=== PATIENT | male | born 1965 | race Caucasian/White ===

== ENCOUNTER 2016-05-16 03:46 | Emergency (ER) | payer BC ==
[~2016-05-16] VITALS: Ht 170.2 cm; Wt 91.0 kg
[~2016-05-16 03:46] MED LIST: ANT25 PO; ASPIRIN; ATV5 PO; NSP500 PO
[2016-05-16 03:51] VITALS: TEMP 36.3; Ht 170.2 cm; Wt 91.0 kg
[2016-05-16] MEDS ORDERED: ONDANSETRON INJ 2 MG/ML 2 ML VIAL ONE (03:59)
[2016-05-16] MEDS ORDERED: ONDANSETRON INJ 2 MG/ML 2 ML VIAL IV STA (04:05)
[2016-05-16] MEDS ORDERED: MoRPHine SULFATE 4 MG/ML 1 ML CARP\\VIAL IV STA (04:05)
[2016-05-16] MEDS ORDERED: SODIUM CHLORIDE 0.9% 1000ML 1,000 ML IV STA (04:05)
[2016-05-16 04:12] LABS: BASO % 0.5 %; BASO ABS # 0.04 K/uL (0-0.2); COMPLETE YES; EOS % 4.8 %; HEMATOCRIT 45.7 % (42-52); IG% 0.1 %; LYMPH % 41.7 %; LYMPH ABS # 3.32 K/uL (1.2-3.4); MEAN CELL VOLUME 82.2 fL (80-100); MEAN CORPUSCULAR HEMOGLOBIN 28.2 pg (25-34); MEAN CORPUSCULAR HGB CONC 34.4 g/dl (32-36); MEAN PLATELET VOLUME 10.3 fL (7.4-10.4); MONO % 10.4 %; NEUT % 42.5 %; PLATELET COUNT 192 K/uL (130-400); RED BLOOD COUNT 5.56 M/uL (4.7-6.1); WHITE BLOOD COUNT 7.96 K/uL (4.8-10.8)
[2016-05-16 04:23] LABS: BUN/CREATININE RATIO 14.7 (10-20); CALCIUM 8.7 mg/dl (8.5-10.1); CREATININE 1.3 mg/dl (0.60-1.40); POTASSIUM 4.2 mmol/L (3.5-5.1)
[2016-05-16] MEDS ORDERED: HYDROmorphone INJ 1 MG/ML SYR IV STA (04:36)
[2016-05-16] MEDS ORDERED: ASPI81TA28 PO (05:24)
[2016-05-16] MEDS ORDERED: OXYC1TAB3 PO (05:43)
[2016-05-16] MEDS ORDERED: ONDANSETRON HOME PACK 4MG OD TAB PO ONE (05:45)
[2016-05-16] MEDS ORDERED: OXYCODONE IR HOME PACK PO ONE (05:45)
--- NOTE | 2016-05-16 06:56 | DIAGNOSTIC IMAGING REPORT ---
ABDOMEN AND PELVIS CT WITHOUT CONTRAST CT DOSE: 1017.86 mGy.cm HISTORY: Left flank pain left side pain TECHNIQUE: Multiaxial CT images of the abdomen and pelvis were performed without the use of intravenous and oral contrast according to the standard department stone protocol. COMPARISON STUDY: None. FINDINGS: Mild bibasilar atelectasis. Liver spleen and pancreas are unremarkable. Gallbladder is negative for distention. Right kidney is negative for hydronephrosis. Left kidney shows mild hydroureteronephrosis. This extends to a left ureteral vesicle calculus measuring 4 mm. Bladder is midline and relatively collapsed. There again is mild left hydroureteronephrosis. Bowel pattern is nonobstructive. The appendix is normal. IMPRESSION: 1. Obstructing calculus left ureterovesical junction. 2. Moderate left hydroureteronephrosis. 3. Additional nonobstructing renal calcification. 4. Mild bibasilar atelectasis. Electronically signed by: Mohan Erazo M.D. 05/16/2016 6:54 AM Dictated Date/Time: 05/16/2016 6:53 AM
[2016-05-16 07:19] VITALS: BP 124/85; PULSE 61; O2SAT 95
--- NOTE | 2016-05-16 08:00 | EMERGENCY ROOM VISIT NOTE ---
ED Visit Note The patient was signed out to me at shift change by Alise Mitchell PA-C. Please see her dictation for additional details. Briefly, the patient presents with a kidney stone. At the time of sign out, we are awaiting urinalysis. The patient was able to urinate well in the emergency department. At this time, he passed a kidney stone. The stone was sent for analysis. The urinalysis reveals hematuria. The patient was pain-free. He was discharged home.
[2016-05-16 08:06] LABS: MANUAL MICROSCOPIC REQUIRED? YES; URINE APPEARANCE CLEAR (CLEAR); URINE BILIRUBIN NEG (NEG); URINE COLOR YELLOW; URINE NITRITE NEG (NEG); URINE PH 5.5 (4.5-7.5); URINE SPECIFIC GRAVITY 1.025 (1.000-1.030); UROBILINOGEN NEG (NEG)
[2016-05-16 08:09] LABS: REVIEW REQ? NO
[2016-05-16 08:13] LABS: URINE BACTERIA NEG (NEG); ZZUR CULT IF INDIC CLEAN CATCH NO
--- NOTE | 2016-05-17 06:04 | EMERGENCY ROOM VISIT NOTE ---
History First contact with patient: 03:53 Chief Complaint: ABDOMINAL PAIN Stated Complaint: LEFT SIDE ABDOMINAL PAIN Nursing Triage Summary: c/o sudden LLQ pain x 1 hour with nausea that woke him from sleep. hx kidney stones. History of Present Illness The patient is a 50 year old male who presents to the Emergency Room with complaints of left lower quadrant pain and side pain for the past hour that woke him up out of sleep. He's had kidney stones before. Patient describes the pain as severe, 9 out of 10. Nothing makes it better or worse. Patient complains of nausea and vomiting. Patient denies chest pain, dyspnea, fever, chills, cough, congestion, urinary symptoms, diarrhea. No colonoscopy. No history diverticulitis. Review of Systems See HPI for pertinent positives & negatives. A total of 10 systems reviewed and were otherwise negative. Past Medical/Surgical History Kidney stones Social History Smoking Status: Never Smoker Alcohol Use: occasionally Drug Use: none Marital Status: Housing Status: lives with family Occupation Status: employed Current/Historical Medications Scheduled Aspirin (Aspirin Ec), 81 MG PO DAILY Niacin Ext Rel (Niaspan Ext Rel), 1,000 MG PO DAILY Scheduled PRN Oxycodone Immediate Rel Tab (Roxicodone Ir), 1-2 TAB PO Q4H PRN for Severe Pain Allergies Coded Allergies: No Known Allergies (Verified Allergy, Unknown, 01/02/06) Physical Exam Vital Signs Date Time Temp Pulse Resp B/P Pulse Ox O2 Delivery O2 Flow Rate FiO2 05/16/16 07:19 61 16 124/85 95 05/16/16 05:25 69 20 120/70 93 Room Air 05/16/16 03:51 36.3 67 20 145/102 94 Room Air Physical Exam VITALS: Vitals are noted on the nurse's note and reviewed by myself. Vital signs stable. GENERAL: Pleasant male writhing in pain, nondiaphoretic, well-developed well- nourished. SKIN: The skin was without rashes, erythema, edema, or bruising. There is no tenting of the skin. Capillary reflex less than 2 seconds. HEAD: Normocephalic atraumatic. EARS: External auditory canals clear, tympanic membranes pearly [place] without erythema or effusion bilaterally. EYES: Pupils equal round and reactive to light and accommodation. Conjunctivae without injection, sclerae without icterus. Extraocular movements intact. NOSE: Patent, turbinates without inflammation or discharge. MOUTH: Mucous membranes moist. Pharynx without erythema or exudate. Uvula midline. Airway patent. Tongue does not deviate. NECK: Supple without nuchal rigidity. No lymphadenopathy. No thyromegaly. Cervical spine is nontender. No JVD. HEART: Regular rate and rhythm without murmurs gallops or rubs. LUNGS: Clear to auscultation bilaterally without wheezes, rales or rhonchi. No dullness to percussion. No retractions or accessory muscle use. ABDOMEN: Positive bowel sounds x 4. Normal tympanic percussion. Soft, nontender, without masses or organomegaly. Gutierrez sign negative. No guarding or rebound tenderness. No CVA tenderness MUSCULOSKELETAL: No muscle atrophy, erythema, or edema noted. NEURO: Patient was alert and oriented to person place and time. Normal sensation to light and sharp touch. No focal neurological deficits. Medical Decision & Procedures Laboratory Results 05/16/16 04:00 Red Blood Count 5.56, Mean Corpuscular Volume 82.2, Mean Corpuscular Hemoglobin 28.2, Mean Corpuscular Hemoglobin Concent 34.4, Mean Platelet Volume 10.3, Neutrophils (%) (Auto) 42.5, Lymphocytes (%) (Auto) 41.7, Monocytes (%) (Auto) 10.4, Eosinophils (%) (Auto) 4.8, Basophils (%) (Auto) 0.5, Neutrophils # (Auto ) 3.38, Lymphocytes # (Auto) 3.32, Monocytes # (Auto) 0.83, Eosinophils # (Auto ) 0.38, Basophils # (Auto) 0.04 05/16/16 04:00 Test 05/16/16 04:00 05/16/16 07:46 White Blood Count 7.96 K/uL (4.8-10.8) Red Blood Count 5.56 M/uL (4.7-6.1) Hemoglobin 15.7 g/dL (14.0-18.0) Hematocrit 45.7 % (42-52) Mean Corpuscular Volume 82.2 fL (80-100) Mean Corpuscular Hemoglobin 28.2 pg (25-34) Mean Corpuscular Hemoglobin Concent 34.4 g/dl (32-36) Platelet Count 192 K/uL (130-400) Mean Platelet Volume 10.3 fL (7.4-10.4) Neutrophils (%) (Auto) 42.5 % Lymphocytes (%) (Auto) 41.7 % Monocytes (%) (Auto) 10.4 % Eosinophils (%) (Auto) 4.8 % Basophils (%) (Auto) 0.5 % Neutrophils # (Auto) 3.38 K/uL (1.4-6.5) Lymphocytes # (Auto) 3.32 K/uL (1.2-3.4) Monocytes # (Auto) 0.83 K/uL (0.11-0.59) Eosinophils # (Auto) 0.38 K/uL (0-0.5) Basophils # (Auto) 0.04 K/uL (0-0.2) RDW Standard Deviation 42.7 fL (36.4-46.3) RDW Coefficient of Variation 14.2 % (11.5-14.5) Immature Granulocyte % (Auto) 0.1 % Immature Granulocyte # (Auto) 0.01 K/uL (0.00-0.02) Anion Gap 9.0 mmol/L (3-11) Est Creatinine Clear Calc Drug Dose 71.5 ml/min Estimated GFR () 72.7 Estimated GFR (Non- 62.7 BUN/Creatinine Ratio 14.7 (10-20) Calcium Level 8.7 mg/dl (8.5-10.1) Urine Color YELLOW Urine Appearance CLEAR (CLEAR) Urine pH 5.5 (4.5-7.5) Urine Specific [place] 1.025 (1.000-1.030) Urine Protein NEG (NEG) Urine Glucose (UA) NEG (NEG) Urine Ketones NEG (NEG) Urine Occult Blood 3+ (NEG) Urine Nitrite NEG (NEG) Urine Bilirubin NEG (NEG) Urine Urobilinogen NEG (NEG) Urine Leukocyte Esterase NEG (NEG) Urine RBC 10-30 /hpf (0-4) Urine WBC 1-5 /hpf (0-5) Urine Epithelial Cells 10-20 /lpf (0-5) Urine Bacteria NEG (NEG) Urine Hyaline Casts 1-5 /lpf (0-5) Medications Administered Medications (Trade) Dose Ordered Sig/Nikko Route Start Time Stop Time Status Last Admin Dose Admin Ondansetron HCl (Zofran Inj) 4 mg STK-MED ONCE .ROUTE 05/16/16 03:59 05/16/16 04:03 DC 05/16/16 04:05 4 MG Morphine Sulfate 4 mg 4 mg NOW STAT IV 05/16/16 04:05 05/16/16 04:06 DC 05/16/16 04:13 4 MG Sodium Chloride (Nss 1000ml) 1,000 ml @ 999 mls/hr Q1H1M STAT IV 05/16/16 04:05 05/16/16 05:05 DC 05/16/16 04:12 999 MLS/HR Hydromorphone HCl (Dilaudid Inj) 1 mg NOW STAT IV 05/16/16 04:36 05/16/16 04:37 DC 05/16/16 04:41 1 MG Ondansetron HCl (ZOFRAN ODT 4MG Home Pack) 1 homepack UD ONCE PO 05/16/16 05:45 05/16/16 05:46 DC 05/16/16 07:22 1 HOMEPACK Oxycodone HCl (Roxicodone Immediate Rel 5MG Home Pack) 1 homepack UD ONCE PO 05/16/16 05:45 05/16/16 05:46 DC 05/16/16 07:22 1 HOMEPACK ED Course Prior records/ancillary studies reviewed. Triage Nursing notes reviewed. Additional history obtained from the family. The patient's history was concerning for Left lower side/abd pain. Differential diagnosis: Etiologies such as renal colic, appendicitis, diverticulitis, mesenteric ischemia, aortic pathology, infections, inflammatory bowel disease, PUD, biliary pathology, UTI, as well as others were entertained. Physical examination findings: As above. ER treatment provided: Morphine, Zofran, IV fluids On reassessment the patient felt better. Diagnostic interpretation by me: The labs revealed no worrisome leukocytosis Imaging studies: CT of the abdomen and pelvis as above. Concerning for left ureterovesical junction calculus at 4 mm It appears that the patient has isolated renal colic from a left sided stone. Patient was neurovascularly and neurologically intact. No deficits on exam. He was well-appearing. His pain was under control. He was advised to rest, stay well-hydrated and to take medications as directed. He was advised to follow-up urology in a few days or here in the ER sooner for severe pain, fevers , vomiting, worsening signs or symptoms or as needed. By the evaluation outlined above emergent etiologies such as appendicitis, diverticulitis, mesenteric ischemia, aortic pathology, infections, inflammatory bowel disease, PUD, biliary pathology, as well as others were deemed relatively unlikely. Patient was still pending urinalysis at time of signout. Case was signed out to Qiana Kearns PA-C pending urinalysis in stable condition The pt informed about the findings as listed above. All questions were answered and pleased with the treatment. Return instructions were outlined and the patient was discharged in stable condition. Outpatient prescription management: Oxy IR 5mg 1-2 po Q4 hrs prn Zofran Referral: The pt was referred to [facility] for follow up care regarding their stone. or The patient was referred back to their primary care physician for follow-up in 2 to 3 days for a recheck of the current condition. Case reviewed with my attending Medical Decision As above Impression Primary Impression: Renal colic on left side Departure Information Dispostion Home / Self-Care Condition GOOD Prescriptions Oxycodone Immediate Rel Tab (ROXICODONE IR) 5 Mg Tab 1-2 TAB PO Q4H Y for Severe Pain, #15 TAB Prov: Reyna Mitchell .VITOR 05/16/16 Referrals Behzad Hills M.D. (PCP) Patient Instructions My [facility] Additional Instructions DO NOT drive, drink alcohol, operate machinery, or perform dangerous activities today. You were given medications in the ER that can affect your ability to safely function or operate a vehicle. Oxycodone Immediate Release (OxyIR) 5mg: Take 1-2 pills every four hours for pain. Avoid alcohol, operating machinery or dangerous equipment, working on ladders or roofs, DRIVING, or situations where being under the influence may be dangerous. It is recommended to use an [id number] stool softener such as Colace, 100mg twice daily while taking this medication to avoid constipation. Zofran 4 mg: Take one every six hours as needed for nausea. Avoid alcohol, operating machinery or dangerous equipment, working on ladders or roofs, DRIVING , or situations where being under the influence may be dangerous. Ibuprofen(Motrin, Advil) may be used for fever or pain. Use 600mg every six hours as needed. Take with food. Avoid using more than 2400mg in a 24 hour period. Do not use 2400mg per day for more than three consecutive days without physician direction. Prolonged inappropriate use can lead to stomach upset or ulcers. This medication can be taken if you need to drive, work, or perform activities which may be dangerous when taking narcotic pain medication. (AND/OR) Acetaminophen(Tylenol) may be used for fever or pain. Use 1000mg every six hours as needed. Avoid using more than 3000mg in a 24 hour period. This medication can be taken if you need to drive, work, or perform activities which may be dangerous when taking narcotic pain medication. Strain your urine and collect all the stones or debris for the urologists. Rest and avoid strenuous activity until your stone passes and symptoms resolve. Drink plenty of fluids. Continue current medications. Return to the ER for worsening abdominal or back pain, vomiting, fevers, passing out, or as needed. Follow up with [facility] tomorrow, [phone], to arrange a visit.
== END 2016-05-16 08:14 | disposition home or self-care (01) ==
LOC: C.EDB 03:47 → C.EDA 08:14
DX: N23 Unspecified renal colic (principal); Z79.82 Long term (current) use of aspirin

== ENCOUNTER → 2016-09-21 | Outpatient (CLI) | payer BC ==
[~2016-09-21] MED LIST changes: -ANT25 PO; +ASPI81TA28 PO; -ASPIRIN; -ATV5 PO; +OXYC1TAB3 PO
[2016-09-21 10:24] LABS: BASO % 0.3 %; BASO ABS # 0.02 K/uL (0-0.2); COMPLETE YES; EOS % 4.5 %; IG% 0.1 %; LYMPH % 26.2 %; LYMPH ABS # 1.81 K/uL (1.2-3.4); MEAN CELL VOLUME 82.4 fL (80-100); MEAN CORPUSCULAR HEMOGLOBIN 27.5 pg (25-34); MEAN CORPUSCULAR HGB CONC 33.3 g/dl (32-36); MEAN PLATELET VOLUME 10.1 fL (7.4-10.4); MONO % 7.4 %; NEUT % 61.5 %; PLATELET COUNT 190 K/uL (130-400); RED BLOOD COUNT 5.46 M/uL (4.7-6.1); WHITE BLOOD COUNT 6.92 K/uL (4.8-10.8)
[2016-09-21 11:02] LABS: ALT/SGPT 33 U/L (12-78); AST/SGOT 16 U/L (15-37); BLOOD UREA NITROGEN 21 mg/dl (7-18); BUN/CREATININE RATIO 20.5 (10-20); CALCIUM 8.6 mg/dl (8.5-10.1); CARBON DIOXIDE 27 mmol/L (21-32); CHLORIDE 111 mmol/L (98-107); GLUCOSE 85 mg/dl (70-99); POTASSIUM 4.3 mmol/L (3.5-5.1); SODIUM 142 mmol/L (136-145)
[2016-09-21 11:05] LABS: ALB/GLOB RATIO 1.2 (0.9-2); ALKALINE PHOSPHATASE 92 U/L (45-117); CHOLESTEROL 134 mg/dl (0-200); CHOLESTEROL/HDL RATIO 3.4; HDL CHOLESTEROL 39 mg/dl; LDL CHOLESTEROL CALCULATED 78 mg/dl; TRIGLYCERIDES 86 mg/dl (0-150); VERY LOW DENSITY LIPOPROT CALC 17 mg/dl
[2016-09-21 11:33] LABS: ESTIMATED AVERAGE GLUCOSE 114 mg/dl; HA1C FLAG Normal (Normal)
== END | disposition home or self-care (01) ==
LOC: C.LAB1850 09:29
PROVIDERS: ATTEND Nurse Practitioner
DX: Z00.00 Encounter for general adult medical examination without abnormal findings (principal)